=== PATIENT | female | born 1995 | race American Indian/Alaskan Native ===

== ENCOUNTER 2017-03-04 23:41 | Emergency (ER) | payer SELFPAY ==
[2017-03-05 00:56] VITALS: BP 137/81
--- NOTE | 2017-03-05 01:21 | Emergency Department Report ---
HPI - General Chief Complaint: Head Injury Time Seen by Provider: 03/05/17 01:12 - HPI HPI: This is a 21-year-old Afro-[place] female presents to the emergency department with complaint of trauma to the head and the right side of her body after she was sitting at a bar eating dinner when the roof collapsed. Some parts of this roof fell down and hit her in the head and she believes that she had some loss of consciousness. She also has a bruise to the right mid arm. She has pain to the arm, right knee, right side of the rib cage, and right ankle. She denies any obvious deformities. She denies any past medical history. She did not take anything for symptoms prior to presentation. She does not have a primary care physician. She denies any neck pain, numbness or paresthesias or any neurological deficits. ED Past Medical Hx - Past Medical History Previous Medical History?: No - Surgical History Past Surgical History?: No - Social History Smoking Status: Never Smoker Substance Use Type: Alcohol - Medications Home Medications: Home Medications Medication Instructions Recorded Confirmed Last Taken Type HYDROcodone/APAP 5-325 [[place] 1 each PO Q6HR PRN #16 tablet 03/05/17 Unknown Rx 5/325] ED Review of Systems ROS: Stated complaint: BUILDING COLLAPSED ON BODY/HEAD Other details as noted in HPI Comment: All other systems reviewed and negative Constitutional: denies: chills, fever Eyes: denies: eye pain, eye discharge, vision change ENT: denies: ear pain, throat pain Respiratory: denies: cough, shortness of breath, wheezing Cardiovascular: denies: chest pain, palpitations Gastrointestinal: denies: abdominal pain, nausea, diarrhea Genitourinary: denies: urgency, dysuria, discharge Musculoskeletal: arthralgia, myalgia. denies: back pain Skin: other (ecchymosis). denies: rash, lesions Neurological: denies: headache, weakness, paresthesias Physical Exam - Physical Exam Vital Signs: Vital Signs 03/05/17 00:50 Temperature 98.4 F Pulse Rate 92 H Respiratory 18 Rate Blood Pressure 137/81 O2 Sat by Pulse 100 Oximetry Physical Exam: GENERAL: The patient is well-developed well-nourished. HEENT: Normocephalic. There is a non-expanding left-sided forehead hematoma. Extraocular motions are intact. Patient has moist mucous membranes. Pupils equal reactive to light bilaterally. NECK: Supple. Trachea is midline. CHEST/LUNGS: Clear to auscultation. There is no respiratory distress noted. HEART/CARDIOVASCULAR: Regular. There is no tachycardia. There is no gallop rub or murmur. ABDOMEN: Abdomen is soft, nontender. Patient has normal bowel sounds. There is no abdominal distention. SKIN: There is a non-expanding left-sided forehead hematoma. There is a moderate circular area of ecchymosis to the right upper arm. NEURO: The patient is awake, alert, and oriented. The patient is cooperative. The patient has no focal neurologic deficits. The patient has normal speech. MUSCULOSKELETAL: There is some tenderness to palpation to the right upper arm/ midhumerus. There is tenderness to palpation to the right knee and right ankle. Negative anterior and posterior drawer test to the affected right knee. No laxity with valgus or varus stress of the right knee. Neurovascularly intact. ED Course Vital Signs 03/05/17 00:50 Temperature 98.4 F Pulse Rate 92 H Respiratory 18 Rate Blood Pressure 137/81 O2 Sat by Pulse 100 Oximetry ED Medical Decision Making - Radiology Data Radiology results: report reviewed, image reviewed interpreted by me: X-ray of the chest, right-sided ribs, right humerus, right knee, right ankle do not show any fractures, dislocations or any acute processes. CT of the head does not show any acute process including no hemorrhage, mass, shift, diffuse edema or skull fracture. - Medical Decision Making 21-year-old female presents after she was eating at a restaurant/bar when the roof collapsed and some of it fell down upon her. She has left-sided forehead hematoma and had some loss of consciousness. CT of the head was done without contrast does not show any bleed, shift, mass or any acute process. She has pain and bruising to the right upper arm, as well as pain to the right knee and ankle and right side of the chest. X-rays were done of the rest of these areas but there is no fracture, dislocation, pneumothorax or any acute process seen. She was given something for pain. She was placed in a right knee immobilizer and crutches. She'll be given referrals for primary care and orthopedist. She will return to the ER with any worsening of her symptoms or any acute distress. - Differential Diagnosis fracture, dislocation, contusion, sprain, strain Critical Care Time: No Critical care attestation.: If time is entered above; I have spent that time in minutes in the direct care of this critically ill patient, excluding procedure time. ED Disposition Clinical Impression: Rib pain on right side, Right arm pain Head injury Qualifiers: Encounter type: initial encounter Qualified Code(s): S09.90XA - Unspecified injury of head, initial encounter Forehead contusion Qualifiers: Encounter type: initial encounter Qualified Code(s): S00.83XA - Contusion of other part of head, initial encounter Right knee pain Qualifiers: Chronicity: acute Qualified Code(s): M25.561 - Pain in right knee Right ankle pain Qualifiers: Chronicity: acute Qualified Code(s): M25.571 - Pain in right ankle and joints of right foot Disposition: TO HOME OR SELFCARE Is pt being admited?: No Condition: Stable Instructions: Concussion (ED), Minor Head Injury (ED), Arthralgia (ED) Additional Instructions: Please follow-up with a primary care doctor in the next few days. I've given a referral for a local orthopedist, Dr. Finch, to follow-up regarding your arm, knee, ankle or any joint pains. Return to the emergency department with any worsening of your symptoms or any acute distress. You've been prescribed a medication that is sedating. Therefore this medication cannot be mixed with alcohol, or taken prior to driving, working, or being responsible for children. Prescriptions: HYDROcodone/APAP 5-325 [[place] 5/325] 1 each PO Q6HR PRN #16 tablet PRN Reason: Pain Referrals: PRIMARY SHANNAN, [Primary Care Provider] - 3-5 Days KIMBERLYN FINCH MD [Staff Physician] - 3-5 Days VLADIMIR MCFARLAND MD [Staff Physician] - 3-5 Days [facility] [Outside] - 3-5 Days Time of Disposition: 03:29
--- NOTE | 2017-03-05 02:09 | Cat Scan Report ---
FINAL REPORT EXAM: CT HEAD/BRAIN WO CON HISTORY: Head trauma COMPARISON: None available. TECHNIQUE: Axial images obtained skull base through vertex. FINDINGS: No acute intracranial hemorrhage, midline shift or pathologic extra axial fluid collection. Ventricles and cisterns are normal in size and configuration for the patient's age. Lamb-white differentiation preserved. Calvarium grossly intact. Orbits are grossly unremarkable. Minimal mucosal thickening the visualized ethmoid air cells. Mastoid air cells are clear. Mild soft tissue swelling along the left frontal calvarium. IMPRESSION: No grossly acute intracranial abnormality. Mild soft tissue swelling along the left frontal calvarium. No calvarial fracture.
[2017-03-05] MEDS ORDERED: NORCO 5/325 PO ONE (02:49)
--- NOTE | 2017-03-05 07:36 | XRay Report ---
RIGHT HUMERUS: History: Right arm pain. AP and lateral views of the humerus demonstrate normal mineralization and contours for this patient's age. No destructive changes are noted and the adjacent soft tissues are normal. IMPRESSION: Normal right humerus.
--- NOTE | 2017-03-05 07:37 | XRay Report ---
RIGHT RIBS, 3 VIEWS: History: pain. Routine views of the rib cage demonstrate normal mineralization with no significant contour abnormalities, fractures or destructive lesions. PA view of the chest demonstrates no underlying cardiopulmonary abnormalities, fluid or pneumothorax. IMPRESSION: Unremarkable right rib series.
--- NOTE | 2017-03-05 07:37 | XRay Report ---
RIGHT ANKLE, 3 views: History: Right ankle pain. Bone mineralization is normal. No acute osseous abnormality or joint pathology is identified. The soft tissues are unremarkable. IMPRESSION: Normal study.
--- NOTE | 2017-03-05 07:37 | XRay Report ---
RIGHT KNEE, 3 views: History: Right knee pain. The bony architecture is intact without evidence of fracture or dislocation. No significant soft tissue abnormality is seen. IMPRESSION: Normal right knee.
== END 2017-03-05 03:56 | disposition home or self-care (01) ==
LOC: ED 23:41
DX: S00.83XA Contusion of other part of head, initial encounter (principal); M25.561 Pain in right knee; M25.571 Pain in right ankle and joints of right foot; M79.601 Pain in right arm; R07.81 Pleurodynia; W20.1XXA Struck by object due to collapse of building, initial encounter; Y93.89 Activity, other specified; Y92.511 Restaurant or cafe as the place of occurrence of the external cause; Y99.8 Other external cause status
CPT/HCPCS: 70450